=== PATIENT | male | born 1945 ===

== ENCOUNTER 2019-10-31 11:16 | Outpatient (CLI) | payer OTHER | END 2019-10-31 11:18 | disposition home or self-care (01) | LOC: SONOGRAMA 11:16 | DX: E04.2 Nontoxic multinodular goiter (principal) ==

== ENCOUNTER 2020-12-28 10:35 | Outpatient (CLI) | payer OTHER | END 2020-12-28 10:38 | disposition home or self-care (01) | LOC: SONOGRAMA 10:35 | PROVIDERS: ATTEND Pathology Anatomic Pathology & Clinical Pathology | DX: E04.2 Nontoxic multinodular goiter (principal) ==